=== PATIENT | male | born 1990 | race Caucasian/White ===

== ENCOUNTER 2020-11-20 10:38 | Emergency (ER) | payer SELFPAY ==
[2020-11-20 11:41] LABS: BASO # 0.01 (0.02-0.10); EOS # 0.06 (0.04-0.40); EOS % 2.3 % (0.0-4.0); HEMATOCRIT 40.2 % (42.0-52.0); LYMPH# 0.93 (1.50-4.00); MEAN CELL VOLUME 79 fl (78-100); MEAN CORPUSCULAR HEMOGLOBIN 27 pg (27-31); MEAN CORPUSCULAR HGB CONC 35 g/dL (33-37); MEAN PLATELET VOLUME 8.1 fl (7.4-10.4); NEU # 1.16 (1.40-6.50); PLATELET COUNT 178 K/mm3 (130-400); RED BLOOD COUNT 5.11 M/mm3 (4.20-5.60); RED CELL DISTRIBUTION WIDTH 12.2 % (11.5-14.5); WHITE BLOOD COUNT 2.6 K/mm3 (4.8-10.8)
[2020-11-20 11:49] LABS: ALBUMIN 4.3 g/dL (3.5-5.0); POTASSIUM 3.8 mmol/L (3.5-5.1)
[2020-11-20 11:50] LABS: CALCIUM 9.1 mg/dL (8.3-10.5)
[2020-11-20 11:51] LABS: TOTAL PROTEIN 7.7 g/dL (6.4-8.3)
[2020-11-20 11:53] LABS: TOTAL BILIRUBIN 0.5 mg/dL (0.2-1.2)
[2020-11-20 13:43] VITALS: BP 126/78
== END 2020-11-20 13:30 | disposition home or self-care (01) ==
LOC: ED 10:38
PROVIDERS: Nurse Practitioner
DX: U07.1 COVID-19 (principal)
CPT/HCPCS: J7030